=== PATIENT | male | born 1970 | race African-American/Black ===

== ENCOUNTER 2019-06-11 13:32 | Emergency (ER) | payer SELFPAY ==
[2019-06-11] MEDS ORDERED: Ketorolac Tromethamine 30 MG/ML VIAL ONE (13:44)
[2019-06-11] MEDS ORDERED: Acetaminophen 500 MG TAB ONE (14:44)
--- NOTE | 2019-06-11 14:57 | RAD ---
AP PELVIS: HISTORY: Injury. FINDINGS: The bladder is opacified from prior IV contrast administration. There is a focal density seen along the left side of the bladder. Correlation is made to the CT performed earlier and this appears to re present a small bladder diverticulum which measures up to 1.8 cm. Bony pelvis appears intact. IMPRESSION: Evidence of bladder diverticulum. No acute osseous abnormality. POS: OFF
== END 2019-06-11 15:25 | disposition home or self-care (01) ==
LOC: ERS 13:32
DX: S29.011A Strain of muscle and tendon of front wall of thorax, initial encounter (principal); I10 Essential (primary) hypertension; E11.9 Type 2 diabetes mellitus without complications; F17.210 Nicotine dependence, cigarettes, uncomplicated; V43.52XA Car driver injured in collision with other type car in traffic accident, initial encounter
CPT/HCPCS: 72170; 93005; 96374; J1885